=== PATIENT | male | born 1945 | race Caucasian/White ===

== ENCOUNTER 2018-09-21 02:39 | Emergency (ER) | payer OTHER ==
[~2018-09-21] VITALS: Ht 180.3 cm; Wt 55.3 kg
[2018-09-21 03:30] VITALS: BP 132/93
== END 2018-09-21 03:30 | disposition home or self-care (01) ==
LOC: ER 02:39
DX: R68.0 Hypothermia, not associated with low environmental temperature (principal); Z59.0 Homelessness